=== PATIENT | female | born 1985 | race Caucasian/White ===

== ENCOUNTER 2016-07-20 06:25 | Inpatient (IN) | payer OTHER ==
[~2016-07-20 06:25] MED LIST: PERCOCET 5/3251 TAB PO
[2016-07-20 07:17] LABS: HCT 31.8 % (37.0-47.0); HGB 10.6 g/dl (12.5-16.0); MCH 29.6 pg (25.0-31.0); MCHC 33.3 g/dL (32.0-36.0); MCV 88.8 fL (78.0-100.0); RBC 3.58 M/uL (4.20-5.40); RDW 14.4 % (11.5-14.0); WBC 10.8 K/uL (4.0-10.5)
[2016-07-20 07:24] LABS: INR 1.02 (0.9-1.2); PTT 29.9 SECONDS (23.2-31.4)
[2016-07-20 10:33] LABS: BILIRUBIN NEGATIVE (NEGATIVE); BLOOD TRACE-LYSED Ery/uL (NEGATIVE); CLARITY CLEAR (CLEAR); COLOR YELLOW (YELLOW); GLUCOSE (U) NORMAL (NORMAL); KETONE (U) NEGATIVE (NEGATIVE); LEUKOCYTES NEGATIVE Leu/uL (NEGATIVE); NITRITE NEGATIVE (NEGATIVE); PROTEIN NEGATIVE (NEGATIVE); SPECIFIC GRAVITY 1.025 (1.001-1.030); UROBILINOGEN 0.2 mg/dL (0.2-1.0)
[2016-07-21 04:12] LABS: HCT 28.3 % (37.0-47.0); HGB 9.4 g/dl (12.5-16.0); MCH 30.1 pg (25.0-31.0); MCHC 33.2 g/dL (32.0-36.0); MCV 90.7 fL (78.0-100.0); RBC 3.12 M/uL (4.20-5.40); RDW 14.5 % (11.5-14.0); WBC 10.2 K/uL (4.0-10.5)
== END 2016-07-22 13:24 | disposition home or self-care (01) | DRG 765 ==
LOC: FOB 06:25
PROVIDERS: ADMIT Obstetrics & Gynecology
PROC: 10D00Z1 Extraction of Products of Conception, Low, Open Approach (ICD-10-PCS; principal; 2016-07-20 08:00)
DX: O34.211 Maternal care for low transverse scar from previous cesarean delivery (principal); O10.92 Unspecified pre-existing hypertension complicating childbirth; D68.61 Antiphospholipid syndrome; E66.9 Obesity, unspecified; O99.12 Other diseases of the blood and blood-forming organs and certain disorders involving the immune mechanism complicating childbirth; O69.81X0 Labor and delivery complicated by cord around neck, without compression, not applicable or unspecified; Z3A.39 39 weeks gestation of pregnancy; Z37.0 Single live birth; O99.214 Obesity complicating childbirth; Z68.31 Body mass index [BMI] 31.0-31.9, adult; O99.334 Smoking (tobacco) complicating childbirth; F17.210 Nicotine dependence, cigarettes, uncomplicated; O99.03 Anemia complicating the puerperium; D64.9 Anemia, unspecified
CPT/HCPCS: 36415; 81003; 85610; 85730; 90707; J0690; J1885; J2274; J2300; J2405; J3010